=== PATIENT | female | born 1970 | race Caucasian/White ===

== ENCOUNTER 2025-05-02 01:54 | Day surgery (SDC) | payer BC, SELFPAY ==
--- NOTE | 2025-04-22 09:59 | SUR.PREOP ---
[facility] has started construction of its new state of the art ER which will open Spring 2026. With this, we anticipate parking may be a challenge for some our surgical patients and families. Parking spaces are limited but are available for all Surgical, obstetrics, and ER patients sharing this lot. If you arrive and find you are having a hard time finding a parking space, please note that we understand the challenges, please drive around the hospital and park near Hospital Entrance 1. When you enter this entrance, you can ask a volunteer to direct or take you back to the surgical waiting area to check in. We appreciate everyone?s understanding of these expected challenges while we build for your future. Report to the Outpatient Waiting Room, entrance under the green pavilion located off [address], at time __6AM__ on date _05/02/25__. Planned Procedure Time: __730AM__.? Time changes happen often and if your time is changed the preop area will call you the afternoon before. - You and your visitor will be asked to self-screen and do not enter if you have any COVID symptoms. Please call surgeon if you need to reschedule. - A mask is optional within the hospital at this time. Patients may have clear liquids (water, carbonated beverages, clear teas, apple juice) until 3 hours prior to surgery with a maximum of 20 ounces. - No food from midnight until time of surgery and no smoking, or chewing tobacco (or any form of nicotine). No chewing gum, candy or mints. Take only the following medications with a SIP of water on the morning of surgery: ____None DO NOT STOP ANY OF YOUR OTHER PRESCRIPTION MEDICATIONS PRIOR TO SURGERY EXCEPT THE FOLLOWING Hold all vitamins and supplements for 3 days per anesthesiologist. Medications to discontinue per physician ____n/a Date to take last dose of vitamins__04/28/25__ Please no make-up, nail puerto rican, hairspray, perfume, deodorant, or body powder the day of surgery.? No jewelry (including any body piercings) or valuables the day of surgery, leave them at home.? Please take a shower or bath the night before, or the morning of, surgery with an antibacterial soap.? Wear comfortable, loose fitting clothing.? - Jewelry must be removed prior to entering the operating room.? Rings and piercings that are not removed may be cut off. - The hospital will not accept responsibility for valuables.? - Please leave all valuables, including medications, at home the day of surgery. If you are going home after surgery, a licensed stage driver must drive you home.? - NO public transportation without another adult if you receive anesthesia. - We recommend that an adult stay with you for 24 hours following discharge. - We also recommend that you do not drive, make important decision, drink alcoholic beverages, or take any drugs that were not prescribed by your health care provider for at least 24 hours after your discharge time. Follow any additional instructions given to you from your surgeon. Telephone instructions given to ___Hannahi____and asked if any additional questions and then verbalized understanding. Patient advised to call surgeon office or pre surgery nurse liaison [phone] if any additional questions.
[2025-04-22 10:06] VITALS: BMI 28.9
--- OUTSIDE RECORDS SUMMARY | 2025-05-02 01:56 | XMS_ITS | Clinical Summary ---
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 Gender Identity Not on file Sexual Orientation Not on file Plan of Treatment Health Maintenance Due Date Last Done Comments Hepatitis C Virus (HCV) Screening 1970 TdaP Immunization 1970 Hepatitis B Immunization (1 of 3 - 19+ 3-dose series) 1989 Pap Smear 1991 Cervical Cancer Screening (CCS) 01/16/2000 HPV/Cotest 01/16/2000 Cologuard 2015 Colonoscopy 2015 Colorectal Cancer Screening 2015 Immunochemical Fecal Occult Blood 2015 Pneumococcal Immunization (50+ years) (1 of 1 - PCV) 01/16/2020 Zoster Immunization (1 of 2) 01/16/2020 Influenza Immunization (#1) 02/28/202503/30, 03/24/2020, 05/06/2019, Additional history exists SARS-COV-2 Immunization (2024- season) 2025 05/19/2021, 10/15/2020, 09/23/2020 Respiratory Syncytial Virus (RSV) Immunization (Adult) (1 - 1-dose 75+ series) 2045 Human Papillomavirus (HPV) Immunization Aged Out No longer eligible based on patient's age to complete this topic Meningococcal Immunization (ACWY) Aged Out No longer eligible based on patient's age to complete this topic Rotavirus Immunization Aged Out No lo nger eligible based on patient's age to complete this topic
--- OUTSIDE RECORDS SUMMARY | 2025-05-02 01:56 | XMS_ITS | Encounter Summary ---
Author Organization [facility] Healthcare Address [address] [place] [address] Care Team Providers Care Buckle Attacher Name Role Phone Afia Page NP Primary Care Provider [phone] Encounter Details Date Type Department Care Team ([facility] Contact Info) Description 03/09/2025 Results Follow-Up [facility] Medical Group Primary Care [address] [place] [address] Afia Page NP [address] [facility] [address] [place] [address] CT Abdomen Pelvis WO Contrast Social History Tobacco Use Types Packs/Day Years Used Date Smoking Tobacco: Never Smokeless Tobacco: Never AUDIT-C Answer Date Recorded Q1: How often do you have a drink containing alc ohol? 2-3 times a week 11/13/2023 Q2: How many drinks containi ng alcohol do you have on a typical day when you are drinking? 1 or 2 11/13/2023 Q3: How often do you have si x or more drinks on one occasion? Never 11/13/2023 PHQ-2 Answer Date Recorded PHQ-2 Total Score (If total score is 3 or more points, staff should administer the PHQ-9) 0 03/07/2025 Personal Safety Answer Date Recorded Have you ever been in or are you currently in a harmful physical or emotional relationship or is someone making you feel afraid or unsafe? 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 Gender Identity Female 10/14/2023 8:56 AM CDT Sexual Orientation Not on file documented as of this encounter Plan of Treatment Scheduled Orders Name Type Priority Associated Diagnoses Orde r Schedule Urinalysis reflex to microscopic and culture Urine, clean voided Microbiology Routine Hematuria, unspecified type Expected: 03/09/2025, Expires: 03/09/2026 documented as of this encounter Visit Diagnoses Diagnosis Hematuria, unspecified type- Primary documented in this encounter Care Teams Buckle Attacher Relationship Specialty Start Date End Date Afia Page NP [address] [place] [id number] PCP - General Family Practice 07/25/21 documented as of this encounter
--- OUTSIDE RECORDS SUMMARY | 2025-05-02 01:57 | XMS_ITS | Encounter Summary ---
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
--- OUTSIDE RECORDS SUMMARY | 2025-05-02 01:57 | XMS_ITS | Clinical Summary ---
Author Organization [facility] at the Medical Office Building Address [address] [place] [address] Care Team Providers Care Wellness Trainer Name Role Phone Afia Page NP Primary Care Provider [phone] Allergies Active Allergy Reactions Criticality Noted Date Comments Erythromycin Stomach upset Low 2019 Medications traZODone (DESYREL) 50 mg tablet Take 1 tablet (50 mg total) by mouth daily 04/04/2022 Active cholecalciferol (VITAMIN D-3) 25 mcg (1,000 unit) tablet Take 1 tablet (1,000 Units total) by mouth daily Active estradiol-noreth indrone (ACTIVELLA) 1-0.5 mg per tablet Take 1 tablet by mouth daily Active estradioL (ESTRACE) 0.01 % (0.1 mg/gram) vaginal cream INSERT 1 GRAM IN THE VAGINA TWICE A WEEK 11/24/2024 Active Active Problems Problem Noted Date Diagnosed Date Acute left flank pain 03/10/2025 Assessment & Plan (03/10/2025 6:11 AM CDT): Pain is positional and reproducible with movement, possibly musculoskeletal, however with hematuria Urine POCT notable for trace blood, otherwise unremarkable Advised can continue Tylenol as directed as needed, can use topical analgesics and heating pad for 15-20 minutes per application Encouraged adequate PO intake Discussed ER evaluation due to unable to order STAT CT in late afternoon, declined If worsening pain or if develops urinary tract symptoms in addition to hematuria, recommended ER evaluation Hematuria 03/10/2025 Assessment & Plan (03/10/2025 6:12 AM CDT): Urine POCT notable for trace blood, otherwise unremarkable, will send for culture Recommended increased PO intake Informed further recommendations to be based on outcome of urine culture, will likely need repeat urinalysis to ensure resolution of blood in urine Advised if hematuria worsens or develops additional urinary tract symptoms, to go to ER for further evaluation and management Otomycosis of right ear 06/12/2024 Eustachian tube dysfunction, right 05/24/2024 Assessment & Plan (05/24/2024 4:24 PM DIRECTOR SPEECH LANGUAGE): Acute Started on prednisone and advised to restart Sudafed as directed x 5-7 days Referral made to ENT if symptoms persist Impacted cerumen of right ear 05/24/2024 Assessment & Plan (05/24/2024 4:27 PM DIRECTOR SPEECH LANGUAGE): Chronicity and stability unknown Advised to stop ear wax remover, states symptoms worsened with use Instructed to return in 2 weeks for cerumen removal if symptoms have resolved Special screening for malignant neoplasms, colon 10/07/2023 Annual physical exam 04/17/2022 Assessment & Plan (08/20/2023 5:33 AM DIRECTOR SPEECH LANGUAGE): Reviewed past and current medical history, surgical history, social history, family history, current medications, and allergies. The chart was updated to identify any changes in these areas. A ROS and PE were performed. Medications and labs were ordered and referrals were made. Discussed screening colonoscopy, well woman exam/cervical cancer screening, screening mammogram, monthly breast self-exams, and recommended immunizations. Patient will follow-up annually for physical exam, sooner if needed. Assessment & Plan (04/17/2022 5:22 PM CDT): Reviewed past and current medical history, surgical history, social history, family history, current medications, and allergies. A ROS and PE were performed. Labs were ordered and a referral was made for a screening colonoscopy. Discussed screening colonoscopy, well woman exam/cervical cancer screening, screening mammogram, and recommended immunizations. Patient will follow-up annually for a physical exam, or sooner if needed. Primary insomnia 04/17/2022 Assessment & Plan (08/20/2023 5:33 AM DIRECTOR SPEECH LANGUAGE): Chronic, stable, controlled with medication Continued on trazodone, however recommended decreasing dose due to fatigue in morning upon awakening Assessment & Plan (04/17/2022 5:23 PM CDT): Chronic, stable, controlled with medication-continued on trazodone. 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 Lipid screening 04/17/2022 Assessment & Plan (04/17/2022 5:24 PM CDT): Ordered lipid panel. Screening for diabetes mellitus 04/17/2022 Assessment & Plan (04/17/2022 5:24 PM CDT): Ordered CMP. Fatigue 04/17/2022 Assessment & Plan (08/18/2023 10:32 AM DIRECTOR SPEECH LANGUAGE): Chronic, notices in the morning upon awakening, resolves by mid-morning Discussed referral to sleep medicine, not interested at this time Continued on trazodone for insomnia, however recommended decreasing dose or skipping a night as may be a side effect of medication Assessment & Plan (04/17/2022 5:25 PM CDT): New diagnosis with recent job change and increased stress coinciding with new job-ordered CBC and TSH. Screening for deficiency anemia 04/17/2022 Assessment & Plan (04/17/2022 5:26 PM CDT): Ordered CBC. Irritable bowel syndrome with diarrhea Assessment & Plan (04/17/2022 5:27 PM CDT): Recent onset, with recent job change and increased stress coinciding with new job and symptom onset-referred for a screening colonoscopy. Instructed to increase dietary fiber for a goal of 20-25 g per day, maintain adequate daily fluid intake, and exercise for a minimum of 150 minutes per week. Overweight (BMI 25.0-29.9) 04/17/2022 Assessment & Plan (08/20/2023 5:34 AM DIRECTOR SPEECH LANGUAGE): Chronic, stable Encouraged to: Make healthy food choices, limiting intake of concentrated sweets, cholesterol, and saturated fat Monitor daily caloric intake and portion sizes Exercise most days of the week for a goal of at least 150 minutes of exercise per week Assessment & Plan (04/17/2022 5:28 PM CDT): Chronic, with slight worsening-encouraged exercise for a minimum of 150 minutes per week. Need for vaccination 04/17/2021 Assessment & Plan (08/20/2023 5:32 AM DIRECTOR SPEECH LANGUAGE): Recommended Shingrix series, considering, will check with insurance 1st regarding covered Assessment & Plan (04/17/2022 5:21 PM CDT): Given influenza vaccine. Assessment & Plan (04/17/2021 10:24 AM CDT): Influenza vaccine given. Vitamin D deficiency 04/16/2021 Assessment & Plan (08/20/2023 5:32 AM DIRECTOR SPEECH LANGUAGE): Chronic, stable, controlled with supplement Reviewed vitamin-D level dated 05/20/2022 Continued on vitamin D3 supplement daily Assessment & Plan (04/17/2022 5:21 PM CDT): Chronic, stability and control unknown, on OTC supplement, previously on prescription supplement-continued on OTC supplement. Ordered vitamin D 25 OH. Assessment & Plan (04/17/2021 10:24 AM CDT): Chronic, stability unknown-advised to continue vitamin D supplementation per cutter brake lining. Resolved Problems Problem Noted Date Diagnosed Date Resolved Date Establishing care with hu wheeler, encounter for 04/17/2021 04/17/2022 Assessment & Plan (04/17/2021 10:23 AM CDT): Reviewed past and current medical history, surgical history, social history, family history, current medications, and allergies. A ROS and PE were performed. Discussed screening colonoscopy, well woman exam/cervical cancer screening, screening mammogram, monthly breast self-exams, and recommended immunizations. Patient will follow-up in 7 months for an annual physical exam and sooner if needed. Encounters Date Type Department Care Team Description 03/29/2025 3:00 PM CDT - 03/29/2025 11:59 PM CDT Hospital Encounter [facility] Ultrasound [facility] [place] [address] Post-menopausal bleeding Discharge Disposition: Discharge to home or self care 03/09/2025 Results Follow-Up [facility] Primary Care at [address] [place] [phone] Afia Page NP Urine culture Urine, clean voided 03/09/2025 Results Follow-Up [facility] Primary Care [address] [place] [address] [address] [place] [phone] Afia Page NP CT Abdomen Pelvis WO Contrast 03/08/2025 4:16 PM CDT - 03/08/2025 11:59 PM CDT Hospital Encounter [facility] [address] [place] [address] Left flank pain; Hematuria, unspecified type Discharge Disposition: Discharge to home or self care 03/08/2025 Telephone [facility] Primary Care [address] [place] [address] [address] [place] [phone] Afia Page NP 03/07/2025 5:16 PM CDT - 03/07/2025 11:59 PM CDT Hospital Encounter [facility] [address] [place] [address] Hematuria, unspecified type Discharge Disposition: Discharge to home or self care 03/07/2025 3:30 PM CDT Office Visit [facility] at [place] [address] [facility] [address] [place] [phone] Afia Page, SELENA Acute left flank pain (Primary Dx); Hematuria, unspecified type from Last 3 Months Immunizations Immunization Administration Dates Next Due Influenza, Quadrivalent, Spl it, Preservative Free, Intramuscular 05/18/2023,04/17/2022,04/17/2021,03/24,05/06/2019,04/22/2018 Influenza, Trivalent, Cell Culture-based MDCK, Preservative Free, Antibiotic Free, Intramuscular 05/15/2024 Influenza, Unspecified 03/07/2025(Deferred: Hui ent Refused) Tdap 06/30/2015 Surgical History Surgery Date Site/Laterality Comments CYST REMOVAL 06/30/1995 - 06/29/1996 fibroid cyst on r breast BREAST BIOPSY Right benign COLOSTOMY WISDOM TOOTH EXTRACTION 06/30/2011 - 06/29/2012 Medical History Medical History Date Comments Ear problems Family History Medical History Relation Name Comments Diabetes Father Rambo Torres Hyperlipidemia Father Rambo Torres Hypertension Father Rambo Torres Diabetes Mother Viky Torres Hypertension Mother Viky Torres Kidney disease Mother Viky Torres Urinary tract infection Mother Viky Torres Breast cancer Neg Hx Relation Name Status Comments Father Rambo Torres Alive Mother Viky Torres Alive Social History Tobacco Use Types Packs/Day Years Used Date Smoking Tobacco: Never Smokeless Tobacco: Never Tobacco Cessation:Counseling Given: Not Answered AUDIT-C Answer Date Recorded Q1: How often [...] on file Legal Sex Female 12:52 AM DIRECTOR SPEECH LANGUAGE Gender Identity Female 10/14/2023 8:56 AM CDT Sexual Orientation Not on file Obstetrics History Para Term AB IAB SAB Ectopic Multiple Livin g Live Births 1 1 1 Date Outcome GA Total Labor Labor/2nd/3rd Weight Sex Type Anes PTL Nida A1 A5 Name Clin Term Last Filed Vital Signs Vital Sign Reading Time Taken Comments Blood Pressure 132/80 03/07/2025 3:37 PM CDT Pulse 87 03/07/2025 3:37 PM CDT Temperature 36.9 C (98.5 F) 03/07/2025 3:37 PM CDT Respiratory Rate 14 03/07/2025 3:37 PM CDT Oxygen Saturation 98% 03/07/2025 3:37 PM CDT Inhaled Oxygen Concentration - - Weight 73 kg (161 lb) 03/07/2025 3:37 PM CDT Height 157.5 cm (5' 2.01) 03/07/2025 3:37 PM CD T Body Mass Index 29.44 03/07/2025 3:37 PM CDT Plan of Treatment Health Maintenance Due Date Last Done Comments Hepatitis C Screening 1970 Hepatitis B Screening 01/16/1988 Zoster Vaccine (1 of 2) 01/16/2020 Regular Well Visit/Exam 18-64 08/18/2024 08/18/2023, 04/17/2022, 11/13/2020 Breast Cancer Screening-Mammogram 11/06/2024 11/07/2023, 10/14/2022, 07/26/2021, Additional history exists Covid-19 Vaccine ( - season) 2025 05/19/2021, 10/15/2020, 09/23/2020 Influenza Vaccine (#1) 2025 , 05/18/2023, 04/17/2022, Additional history exists DTaP/Tdap/Td Vaccine (2 - Td or Tdap) 06/30/2025 06/30/2015 Cervical Cancer Screening 07/10/2025 07/10/2022 Depression Screening 03/07/2026 03/07/2025, 08/18/2023, 08/18/2023, Additional history exists Colon Cancer Screening-Colonoscopy 11/12/2033 11/13/2023 Colon Cancer Screening-CT Colonography Discontinued 11/13/2023 Colon Cancer Screening-DNA Stool Discontinued 11/13/2023 Colon Cancer Screening-FIT Discontinued 11/13/2023 Colon Cancer Screening-Sigmoidoscopy Discontinued 11/13/2023 Pneumococcal vaccine <65 Aged Out No longer eligible based on patient's age to complete this topic Procedures Procedure Name Priority Date/Time Associated Diagnosis Comments US PELVIS W ENDOVAGINAL Schedule Routine, Read Routine (OP Routine) 03/29/2025 3:46 PM CDT Post-menopausal bleeding CT ABDOMEN PELVIS WO CONTRAST Schedule KATHERINE, Read KATHERINE (Appt Today, Awaiting Results) 03/08/2025 4:54 PM CDT Left flank pain Hematuria, unspecified type POCT URINALYSIS DIPSTICK Routine 03/07/2025 4:08 PM CDT Acute left flank pain Hematuria, unspecified type URINE CULTURE Routine 03/07/2025 4:07 PM CDT Hematuria, unspecified type COLONOSCOPY 11/13/2023 9:54 AM CDT SCREENING MAMMOGRAM BILATERAL W ALEJANDRO Schedule Routine, Read Routine (OP Routine) 11/07/2023 7:40 AM CDT Screening mammogram, encounter for from Last 3 Months or Most Recently Relevant to Health Maintenance Results * US Pelvis W Endovaginal (03/29/2025 3:46 PM CDT) Anatomical Region Laterality Modality Pelvis N/A Ultrasound 04/01/2025 6:48 AM CDT Narrative 04/01/2025 6:51 AM CDT EXAM DESCRIPTION: US PELVIS W ENDOVAGINAL REASON FOR STUDY: Post menopausal bleeding for 1 week. TECHNIQUE: Grayscale ultrasound of the pelvic contents was performed with transabdominal and transvaginal transducer. COMPARISON: None FINDINGS: UTERUS: The uterus measures 8.9 x 3.4 x 4.5 cm on transabdominal imaging. On transvaginal imaging, there is a nabothian cyst within the posterior aspect of the cervix measuring 1.1 cm. Evaluation of the myometrium is limited on transvaginal imaging due to significant shadowing. The endometrium measures up to 7 mm in thickness, as visualized on image number 60 this is abnormal for a postmenopausal female. RIGHT OVARY: The right ovary is not visualized on this examination. Adnexal region very limited in assessment. LEFT OVARY: The left ovary is not visualized. The adnexal region is very limited in assessment. PELVIC FLUID: There is no evidence of free fluid in the pelvis. OTHER: No other significant findings. IMPRESSION: 1. Endometrium 7 mm in thickness, abnormal for a postmenopausal female. Given postmenopausal bleeding, hysteroscopy recommended for further evaluation. Evaluation of the uterus limited on this examination secondary to shadowing/artifact. 2. Nonvisualization of the ovaries. THIS IS AN ELECTRONICALLY VERIFIED FINAL REPORT 04/01/2025 6:51 AM - Electronically signed by Qi Beckett M.D. TW: TW Report ID: [id number] Reading Location: [id number] Procedure Note Qi Beckett MD - 04/01/2025 EXAM DESCRIPTION: US PELVIS W ENDOVAGINAL REASON FOR STUDY: Post menopausal bleeding for 1 week. TECHNIQUE: Grayscale ultrasound of the pelvic contents was performed with transabdominal and transvaginal transducer. COMPARISON: None FINDINGS: UTERUS: The uterus measures 8.9 x 3.4 x 4.5 cm on transabdominal imaging. On transvaginal imaging, there is a nabothian cyst within the posterior aspect of the cervix measuring 1.1 cm. Evaluation of themyometrium is limited on transvaginal imaging due to significant shadowing. The endometrium measures up to 7 mm in thickness, as visualized on imagenumber 60 this is abnormal for a postmenopausal female. RIGHT OVARY: The right ovary is not visualized on this examination.Adnexal region very limited in assessment. LEFT OVARY: The left ovary is not visualized. The adnexal region is very limited in assessment. PELVIC FLUID: There is no evidence of free fluid in the pelvis. OTHER: No other significant findings. IMPRESSION: 1. Endometrium 7 mm in thickness, abnormal for a postmenopausal female. Given postmenopausal bleeding, hysteroscopy recommended for further evaluation. Evaluation of the uterus limited on this examinationsecondary to shadowing/artifact. 2. Nonvisualization of the ovaries. THIS IS AN ELECTRONICALLY VERIFIED FINAL REPORT 04/01/2025 6:51 AM - Electronically signed by Qi Beckett M.D. TW: Report ID: [id number] Reading Location: [place] [address] us Ana Rosa Molina MD IMG US PROCEDURES Final Result * CT Abdomen Pelvis WO Contrast (03/08/2025 4:54 PM CDT) Anatomical Region Laterality Modality Body N/A Computed Tomogra phy 03/08/2025 6:12 PM CDT Narrative 03/08/2025 6:26 PM CDT EXAM DESCRIPTION: CT ABDOMEN PELVIS WO CONTRAST REASON FOR STUDY: Abdominal/flank pain, stone suspected, left-sided flank pain and hematuria 4 days left flank pain with microscopic hematuria TECHNIQUE: CT scan of the abdomen and pelvis performed without intravenous and without oral contrast using helical scanning technique. Reconstructed coronal and sagittal MPR images reviewed. All images stored on PACS. Automated exposure control was used as a dose optimization technique for this examination. COMPARISON: None available FINDINGS: The sensitivity for detection of visceral lesions is diminished without the use of intravenous contrast. LOWER CHEST: Imaged lungs are clear. No pleural effusion. Imaged portions of the heart and esophagus are within normal limits. LIVER: Normal size. No identified cystic or solid masses. GALLBLADDER: Normal. BILE DUCTS: No intrahepatic or extrahepatic ductal dilatation. SPLEEN: Normal size. No focal lesions. PANCREAS: No identified cystic or solid masses. No significant calcifications. No adjacent inflammation or peripancreatic fluid collections. Pancreatic duct not dilated. ADRENALS: Normal. KIDNEYS/URINARY TRACT: No identified significant cystic or solid masses. No stones. No hydronephrosis or hydroureter. 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 Urinary bladder is unremarkable. GI: The stomach is normal. The small bowel and colon are normal in course and caliber with no evidence of obstruction or inflammation. The appendix is normal. PERITONEUM: No ascites or free air. No lymphadenopathy. RETROPERITONEUM: No mass or adenopathy. REPRODUCTIVE: No significant abnormality. VASCULATURE: No abdominal aortic aneurysm. MUSCULOSKELETAL: No acute fractures or aggressive bone lesions. IMPRESSION: 1. No calculi in the urinary tract. No hydronephrosis or hydroureter. 2. Normal appendix. THIS IS AN ELECTRONICALLY VERIFIED FINAL REPORT 03/08/2025 6:26 PM - Electronically signed by Ren Mahmood M.D. AT T: Report ID: [id number] Reading Location: [id number] Procedure Note Ren Mahmood MD - 03/08/2025 EXAM DESCRIPTION: CT ABDOMEN PELVIS WO CONTRAST REASON FOR STUDY: Abdominal/flank pain, stone suspected, left-sidedflank pain and hematuria 4 days left flank pain with microscopic hematuria TECHNIQUE: CT scan of the abdomen and pelvis performed without intravenousand without oral contrast using helical scanning technique. Reconstructed coronal and sagittal MPR images reviewed. All images stored on PACS.Automated exposure control was used as a dose optimization technique for this examination. COMPARISON: None available FINDINGS: The sensitivity for detection of visceral lesions is diminished without the use of intravenous contrast. LOWER CHEST: Imaged lungs are clear. No pleural effusion. Imagedportions of the heart and esophagus are within normal limits. LIVER: Normal size. No identified cystic or solid masses. GALLBLADDER: Normal. BILE DUCTS: No intrahepatic or extrahepatic ductal dilatation. SPLEEN: Normal size. No focal lesions. PANCREAS: No identified cystic or solid masses. No significant calcifications. No adjacent inflammation or peripancreatic fluidcollections. Pancreatic duct not dilated. ADRENALS: Normal. KIDNEYS/URINARY TRACT: No identified significant cystic or solid masses.No stones. No hydronephrosis or hydroureter. At least partly duplicatedleft renal collecting system, incompletely evaluated on this noncontrast CTstudy. Urinary bladder is unremarkable. GI: The stomach is normal. The small bowel and colon are normal incourse and caliber with no evidence of obstruction or inflammation. The appendixis normal. PERITONEUM: No ascites or free air. No lymphadenopathy. RETROPERITONEUM: No mass or adenopathy. REPRODUCTIVE: No significant abnormality. VASCULATURE: No abdominal aortic aneurysm. MUSCULOSKELETAL: No acute fractures or aggressive bone lesions. IMPRESSION: 1. No calculi in the urinary tract. No hydronephrosis or hydroureter. 2. Normal appendix. THIS IS AN ELECTRONICALLY VERIFIED FINAL REPORT 03/08/2025 6:26 PM - Electronically signed by Ren Mahmood M.D. AT T: Report ID: [id number] Reading Location: [place] [address] Afia Page NP IMG CT PROCEDURES Final Result * (ABNORMAL) POCT urinalysis dipstick (03/07/2025 4:08 PM CDT) Color, Urine, POC Light Yellow Clarity, ur, POC Clear Clear Glucose, ur, POC Negative Negative Bilirubin, ur, POC Negative Negative Ketones, ur, POC Negative Negative Specific [place], POC 1.010 1.003 - 1.030 Blood, ur, POC Trace(A) Negative pH, ur, POC 5.5 5.0 - 8.0 Protein, ur, POC Negative Negative Urobilinogen, urine, POC 0.2 0.2 - 1.0 mg/dL Nitrite, ur, POC Negative Negative Leukocytes, ur, POC Negative Negative Lot Number [id number] Comment:Exp [id number] Urine 03/07/2025 4:08 PM CDT Afia Page NP POINT OF CARE TEST ORDERABLES Fi nal Result * Urine culture Urine, clean voided (03/07/2025 4:07 PM CDT) Report Final Report: Less than 100,000 colonies/mL (clinically insignificant growth based on current clinical standards) Comment:Testing performed by : [facility] [address] [facility], [place]., [address] Organism (CLINICALLY INSIGNIFICANT GROWTH KADEEM SPARKS Urine, clean voided 03/07/2025 4:07 PM CDT 03/08/2025 12:16 AM CDT Narrative KADEEM CLARE - 03/09/2025 9:58 AM CDT Testing performed by [facility] ([phone]) us Afia Page NP LAB MICROBIOLOGY - GENERAL ORDER YANA Final Result KADEEM [address] [facility] [place] [address] * Colonoscopy (11/13/2023 9:54 AM CDT) Anatomical Region Laterality Modality Other Narrative Procedure Note Johnathan Cancino, - 11/13/2023 9:54 AM CDT [facility] GI ENDOSCOPY Patient Name: Meenakshi Ghotra Procedure Date: 11/13/2023 9:54 AM Date of : 1970 Admit Type: Outpatient Age: 53 Gender: Female Attending MD: Johnathan Cancino D.O. Room: [facility] ENDOSCOPY ROOM 05 Note Status: Finalized Procedure: Colonoscopy Indications: Screening for colorectal malignant neoplasm Referring MD: Lars Eastman Providers: Johnathan Cancino D.O. Medicines: See the Anesthesia note for documentation of the administered medications Complications: No immediate complications. Estimated Blood Loss: Estimated blood loss: none. Procedure: The benefits, risks and alternatives of theprocedure and sedation were discussed and informed consentwas obtained. All questions were answered. Please referto the signed informed consent document in the medical record. The scope was passed under direct vision.The PCF-H180AL colonoscope was introduced through theanus and advanced to the cecum, identified byappendiceal orifice and ileocecal valve. The colonoscopy was performed without difficulty. The patient tolerated the procedure well. The quality of the bowel preparation was good. Prep was administered in asplit dose. Findings: The entire examined colon appeared normal on direct and retroflexion views. Impression: - The entire examined colon is normal on direct and retroflexion views. - No specimens collected. Recommendation: - Patient has a contact number available for emergencies. The signs and symptoms of potential delayed complications were discussed with thepatient. Return to normal activities tomorrow. Written discharge instructions were provided to thepatient. - Resume previous diet. - Continue present medications. - Repeat colonoscopy in 10 years forsurveillance. Johnathan Cancino D.O. 11/13/2023 10:21:14 AM Number of Addenda: 0 Note Initiated On: 11/13/2023 9:54 AM Recognized by the [employer] for promoting quality in endoscopy Johnathan Cancino DO ENDOSCOPY PROCEDURES Fin al Result * Screening Mammogram Bilateral W Alejandro (11/07/2023 7:40 AM CDT) Anatomical Region Laterality Modality Breast Bilateral Mammography Impressions 11/07/2023 8:17 AM CDT BI-RADS ATLAS category (overall): 2 - Benign There is no mammographic evidence of malignancy. A 1 year screening mammogram is recommended. The patient has been or will be contacted. We recommend annual screening mammography for women at average risk of breast cancer beginning at age 40, based on guidelines of the [employer] (ACR Practice Parameter for the Performance of Screening and Diagnostic Mammography) and [employer]. For women with and elevated risk of breast cancer, please refer to the ACR Practice Parameter for specific screening recommendations. The patient will be entered into a reminder system with a target due date of 1 year for her next screening exam. Narrative 11/07/2023 8:17 AM CDT Screening Mammogram Bilateral W Alejandro: 11/07/23 The study was acquired using full field digital technology and interpreted from soft copy. 2D digital mammographic views, as well as 3D digital tomosynthesis were performed in the CC and MLO projections. CLINICAL: Screening mammogram, encounter for. No relevant medical history has been documented for this patient. History of breast cancer in Neg Hx. COMPARISONS: 10/14/2022 Screening Mammogram Bilateral W Alejandro 07/26/2021 Screening Mammogram Bilateral W Alejandro 06/02/2020 Diagnostic Mammogram Left W Alejandro 06/02/2020 US Breast Left Limited 05/29/2020 Screening Mammogram Bilateral W Alejandro BREAST TISSUE: The breasts are heterogeneously dense, which may obscure small masses. FINDINGS: Benign appearing bilateral breast masses and microcalcifications have not suspiciously changed. There is no new suspicious finding in either breast on mammogram. Ana Rosa Molina MD IMG MAMMO PROCEDURES Fin al Result from Last 3 Months or Most Recently Relevant to Health Maintenance Insurance [facility] CHOICE OOS BLUE ACCESS OOS Care Teams Wellness Trainer Relationship Specialty Start Date End Date Afia Page NP [address] [place] [address] [id number] PCP - General Family Practice 07/25/21
--- OUTSIDE RECORDS SUMMARY | 2025-05-02 01:57 | XMS_ITS | Clinical Summary ---
Author Organization [facility] Address [address] [place] [address] Care Team Providers Care Ship Self Defense System Mk1 Operator Name Role Phone Afia Page Darnell SANDRA Primary Care Provider [phone] Allergies Active Allergy Reactions Criticality Noted Date Comments Erythromycin GI Upset Low 2019 Medications vitamin D3, cholecalciferol , 1.25 MG (90741 UT) capsule TAKE 1 CAPSULE BY MOUTH EVERY WEEK 09/26/2020 Active traZODone (DESYREL) 50 MG tablet Take 50 mg by mouth nightly at bedtime. at bedtime 08/12/2022 Active Estradiol-Noret hindrone Acet 1-0.5 MG Tab Take 1 tablet by mouth daily. 07/11/2022 Active Active Problems Problem Noted Date Diagnosed Date Papanicolaou smear for cervical cancer screening 04/22/2018 Overview (05/19/2019): Description: 08/2016, Dr. Molina Immunizations Immunization Administration Dates Next Due Fluzone 6 Months+ Quad (0.5 mL Prefilled Syringe ) 05/06/2019 Influenza Adult (Generic) 04/22/2018 Family History Medical History Relation Comments Hypertension Brother Diabetes Father Hyperlipidemia Father Hypertension Father ALS Maternal Grandfather Colon Cancer Maternal Grandmother Diabetes Mother Hypertension Mother Cancer Paternal Grandfather not colon c ancer CHF Paternal Grandmother Hypertension Sister Breast Cancer Neg Hx Relation Status Comments Brother Father Alive Maternal Grandfather Maternal Grandmother Mother Alive Paternal Grandfather Paternal Grandmother Sister Social History Tobacco Use Types Packs/Day Years Used Date Smoking Tobacco: Never Smokeless Tobacco: Never Tobacco Cessation:Counseling Given: No Alcohol Use Standard Drinks/Week Comments Yes 0 (1 standard drink = 0.6 oz pur e alcohol) a glass of wine a night AUDIT-C Answer Date Recorded Frequency of Alcohol Consumption Never 07/19/2020 Average Number of Drinks Not on file 021 Frequency of Binge Drinking Not on file 07/01 PHQ-2 Answer Date Recorded PHQ-2 Score - If the patient scores above 3, please move on to questions 3-9 0 11/13/2020 Comments No Sex and Gender Information Value Date Recorded Sex Assigned at Not on file Legal Sex Female 7:25 PM CDT Gender Identity Not on file Sexual Orientation Not on file Last Filed Vital Signs Vital Sign Reading Time Taken Comments Blood Pressure 137/85 08/23/2022 2:53 PM GRADING CLERK Pulse 120 08/23/2022 2:53 PM GRADING CLERK Temperature 37.2 C (98.9 F) 08/23/2022 2:53 PM GRADING CLERK Respiratory Rate 18 08/23/2022 2:53 PM GRADING CLERK Oxygen Saturation 98% 08/23/2022 2:53 PM GRADING CLERK Inhaled Oxygen Concentration - - Weight 70.3 kg (155 lb) 08/23/2022 2:53 PM GRADING CLERK Height 157.5 cm (5' 2) 08/23/2022 2:53 PM GRADING CLERK Body Mass Index 28.35 08/23/2022 2:53 PM GRADING CLERK Plan of Treatment Health Maintenance Due Date Last Done Comments Cervical Cancer Screening Pap Smear (Age 30 to 64) Every 3 Years 1970 Colorectal Cancer Screening Colonoscopy (10 Years) 1970 Hepatitis C 01/16/1988 DTaP, Tdap and Td Vaccines (1 - Tdap) 1989 Hepatitis B Vaccines (1 of 3 - 19+ 3-dose series) 1989 Cervical Cancer Screening Pap with HPV Testing (Age 30 to 64) Every 5 Years 01/16/2000 Cervical Cancer Screening with HPV 01/16/2000 Mammogram Screening 2010 Pneumococcal Vaccine: 50+ Years (1 of 1 - PCV) 01/16/2020 Zoster Vaccines (1 of 2) 01/16/2020 Annual Physical 11/13/2021 11/13/2020, 05/19/2019 COVID-19 Vaccine ( season) 2025 05/19/2021, 10/15/2020, 09/23/2020 Influenza Adult (#1) 2025 04/17/2022, 04/17/2021, 03/24/2020, Additional history exists Hepatitis A Vaccines Aged Out No long er eligible based on patient's age to complete this topic Meningococcal B Vaccine Aged Out No l onger eligible based on patient's age to complete this topic Meningococcal Vaccine Aged Out No bahman quintin eligible based on patient's age to complete this topic RSV Immunizations Under 20 Months Aged Out No longer eligible based on patient's age to complete this topic [place] [place] [id number] Care Teams Ship Self Defense System Mk1 Operator Relationship Specialty Start Date End Date Afia Page APRN [address] [place] [id number] PCP - General NURSE PRACTITIONER 08/23/22
[2025-05-02 06:05] VITALS: BP 131/79; PULSE 96; RESP 16; TEMP 36.5; O2SAT 100
[2025-05-02] MEDS: ACETAMINOPHEN 500 MG TABLET 1000 MG PO (06:12)
[2025-05-02] MEDS: LACTATED RINGERS 1,000 ML 30 ML IV CONT (06:25)
--- NOTE | 2025-05-02 07:12 | WPDHPUPDATE1 ---
History and Physical Update Update Date/Time: 05/02/25 07:12 History and Physical has been reviewed, including an updated exam of the patient. There are NO changes in the patient's condition. Risks, benefits, and alternatives have been discussed and questions answered. Patient agrees to proceed with procedure.
--- NOTE | 2025-05-02 07:12 | PM.HPGS ---
History of Present Illness History of Present Illness Consent: Risks, benefits, and alternatives have been discussed and questions answered. Patient agrees to proceed with procedure. Chief complaint: post menopausal bleeding Narrative: Meenakshi Ghotra is a 55 year old female with postmenopausal bleeding and thickened endometrium. It was recommended to undergo D&C hysteroscopy for further evaluation. Risks of infection, bleeding, perforation, and possible pathology are reviewed. Patient voices understanding and agreed to proceed. Review of Systems Review of Systems: not repeated day of surgery; patient states no changes in status [facility] Past Medical History Medical History (Updated 05/02/25 @ 07:14 by Ana Rosa Molina MD) (normal spontaneous vaginal delivery) Surgical History Surgical History (Updated 05/02/25 @ 07:13 by Ana Rosa Molina MD) Status post right breast lumpectomy Benign Social History Social History Smoking status: Never smoker Alcohol intake: current Drinks per week: 3 Living arrangements: with family Spiritual care concerns: No Meds Home Medications and Allergies Home Medications ?Medication ?Instructions ?Recorded ?Confirmed ?Type cholecalciferol (vitamin D3) 50 2,000 unit PO ONCE 04/22/25 05/02/25 History mcg (2,000 unit) tablet (Vitamin D3) estradiol-norethindrone acet 1 1 tablet PO HS 04/22/25 05/02/25 History mg-0.5 mg tablet mecobalamin (vitamin B12) 3,000 3,000 mcg PO DAILY 04/22/25 05/02/25 History mcg/2 mL oral drops (PureVita Vitamin B12) multivitamin (Daily Value tablet) 1 tablet PO DAILY 04/22/25 05/02/25 History trazodone 50 mg tablet 50 mg PO HS 04/22/25 05/02/25 History Allergies Allergy/AdvReac Type Severity Reaction Status Date / Time Penicillins Allergy Severe hives Verified 05/02/25 06:09 ERYTHROMYCIN (Generic Allergy Mild Nausea Uncoded 05/02/25 06:09 Allergy) Vital Signs Vital Signs - 24 hr 05/02/25 06:05 Temperature 97.7 F Pulse Rate 96 Respiratory Rate 16 Blood Pressure 131/79 Pulse Oximetry 100 Oxygen Delivery Room Air Exam Const: General: healthy appearing and alert Orientation/consciousness: patient oriented x3 Resp: Effort & Inspection: normal respiratory effort : External Female Exam: normal external appearance Speculum Exam - Vagina: normal appearance of the vagina and normal vaginal discharge Speculum Exam - Cervix: normal appearance of the cervix and Other cervical findings present (Blood coming through the cervix) Bimanual exam- vagina & uterus: uterine size normal and consistency normal Bimanual Exam- Adnexa, other: normal adnexae and No adnexal tenderness Neuro: General: patient oriented x3 Assessment and Plan Assessment and plan (1) Post-menopausal bleeding: Code(s): N95.0 - Postmenopausal bleeding Status: Acute Assessment and Plan: Plan to proceed with D&C hysteroscopy
--- NOTE | 2025-05-02 07:13 | WPDANESEPPF ---
Anes - Initial Pre Proc Eval Procedure: Operation Date: 05/02/25 07:30 Proposed Procedures p Hysteroscopy Dilation and Curettage - Ana Rosa Molina MD Date/Time: 05/02/25 07:13 Surgeon: Ana Rosa Molina MD Pre Op Diagnosis: post menopausal bleeding Patient Data Age: 55 Gender: F Height: 1.57 m Weight: 72.55 kg Last Vital Signs Temp 36.5 C 05/02/25 06:05 Pulse 96 05/02/25 06:05 Resp 16 05/02/25 06:05 BP 131/79 05/02/25 06:05 Pulse Ox 100 05/02/25 06:05 O2 Del Method Room Air 05/02/25 06:05 Allergies Allergy/AdvReac Type Severity Reaction Status Date / Time Penicillins Allergy Severe hives Verified 05/02/25 06:09 ERYTHROMYCIN (Generic Allergy Mild Nausea Uncoded 05/02/25 06:09 Allergy) Home Medications ?Medication ?Instructions ?Recorded ?Confirmed ?Type cholecalciferol (vitamin D3) 50 2,000 unit PO ONCE 04/22/25 05/02/25 History mcg (2,000 unit) tablet (Vitamin D3) estradiol-norethindrone acet 1 1 tablet PO HS 04/22/25 05/02/25 History mg-0.5 mg tablet mecobalamin (vitamin B12) 3,000 3,000 mcg PO DAILY 04/22/25 05/02/25 History mcg/2 mL oral drops (PureVita Vitamin B12) multivitamin (Daily Value tablet) 1 tablet PO DAILY 04/22/25 05/02/25 History trazodone 50 mg tablet 50 mg PO HS 04/22/25 05/02/25 History Patient hx anesthesia problems: none Family hx anesthesia problems: none Results Review: All pre-operative results and documents have been reviewed as part of the pre-operative evaluation. [facility] Past Medical History Medical History (Updated 05/02/25 @ 07:13 by Ana Rosa Molina MD) (normal spontaneous vaginal delivery) Surgical History Surgical History (Updated 05/02/25 @ 07:13 by Ana Rosa Molina MD) Status post right breast lumpectomy Benign Social History Social History Smoking status: Never smoker Alcohol intake: current Drinks per week: 3 Living arrangements: with family Spiritual care concerns: No Anes - Eval Final PreProcedure Day of Procedure 05/02/25 07:13 Patient weight: overweight Heart: regular rate and rhythm Lungs: clear to auscultation Airway: Mallampati scale class II Neurological: alert and oriented Last oral intake: >/= 8 hours ASA classification: II Emergent: no Anesthetic plan: proceed Anesthesia type and monitoring: general GIVS and standard monitoring Results Review: All pre-operative results and documents have been reviewed as part of the pre-operative evaluation. Informed Consent: The patient's anesthetic plan and its attendant risks and benefits were discussed with the patient/family/POA. Questions were solicited and answers provided to the satisfaction of the patient/family/POA.
--- NOTE | 2025-05-02 07:37 | S_PTH ---
PATIENT: Meenakshi Ghotra LOC: [facility]#:[id number] AGE/SX: 55/F ROOM: RE05/02/[address]: Ana Rosa Molina MD : 1970 BED: DIS: 05/02/2025 SPEC #: [id number] RECD: 05/02/25 10:39 STATUS: SHANNAN REQ #: [id number] MIGUEL: 05/02/25 07:[address]: Ana Rosa Molina DEPT: [facility] Surgical RECD BY: Radha eWst ENTERED: 05/02/25 10:40 SP TYPE: Surgical OTHR DR: Afia Page, TRANSMITTER ENGINEER Tissues: A - Endometrial Curettings Procedures: Hematoxylin and Eosin Stain Gross and Microscopic Level 4
[2025-05-02] MEDS: KETOROLAC 15 MG/ML VIAL (*BKC) IV PUSH (07:40)
--- NOTE | 2025-05-02 07:42 | SUR.OPER ---
fluid deficit 20
--- NOTE | 2025-05-02 07:44 | W.PM.PROC2 ---
Procedure Note - Detailed Date of Procedure 05/02/25 Pre-op Diagnosis post menopausal bleeding Post-op Diagnosis Same Procedure Performed D&C hysteroscopy Surgeon Ana Rosa Molina MD Anesthesia MAC Findings Uterus sounds to 7cm and appears grossly atrophic without lesions Description of Procedure The patient was taken to the operating room and placed under anesthesia in the dorsal lithotomy position. She was prepped and draped in the usual sterile fashion. [place] speculum was placed in the vagina and the cervix grasped on the anterior lip with a tenaculum. The uterus was sounded to 7cm. The diagnostic hysteroscope was placed and with no abnormalities noted picture documentation was taken and the camera removed. The cervix was dilated to a 5 Hegar to allow passage of the sharp curette. The sharp curette was then used to curette the endometrium until a good uterine cry was noted in all areas. Minimal material was obtained consistent with the atrophic appearance. All instruments were then removed. Sponge, needle, and instrument counts are correct per the OR staff. The patient was taken to recovery in stable condition. Estimated Blood Loss 5 Drains No Packing No Pathology Yes (Endometrial curettings) Complications No immediate complications Condition Stable Disposition PACU
[2025-05-02 07:47] VITALS: BP 122/63; PULSE 98; RESP 14; O2SAT 98
[2025-05-02 08:15] VITALS: BP 126/89; PULSE 75; RESP 16; O2SAT 98
[2025-05-02 08:45] VITALS: BP 128/72; PULSE 66; RESP 16
== END 2025-05-02 08:57 | disposition home or self-care (01) ==
PROVIDERS: PCP Family Medicine; Visit Provider Obstetrics & Gynecology Gynecology
PROC: 0U5B8ZZ Destruction of Endometrium, Via Natural or Artificial Opening Endoscopic (ICD-10-PCS; CPT 58563; principal; 2025-05-02 07:30)
DX: N95.0 Postmenopausal bleeding (principal); N85.8 Other specified noninflammatory disorders of uterus
CPT/HCPCS: 58558; 88305; A9270; J1885; J2003; J2250; J2704; J3010; J7120